=== PATIENT | male | born 1990 | race African-American/Black ===

== ENCOUNTER 2018-03-06 18:57 | Emergency (ER) | payer OTHER ==
[~2018-03-06] VITALS: Ht 170.2 cm; Wt 63.5 kg
[2018-03-06] MEDS ORDERED: TRAMADOL HCL50 MG (19:21)
== END 2018-03-06 20:38 | disposition home or self-care (01) ==
LOC: ER 18:57
DX: M25.512 Pain in left shoulder (principal); F11.10 Opioid abuse, uncomplicated